=== PATIENT | female | born 1985 | race Caucasian/White ===

== ENCOUNTER 2018-07-18 22:37 | Inpatient (IN) | payer OTHER ==
[~2018-07-18] VITALS: Ht 165.1 cm; Wt 75.7 kg
[2018-07-18] MEDS ORDERED: OXYTOCIN 30 UNITS/LACT RINGERS 500 ML IV ONE (23:29)
[2018-07-18] MEDS ORDERED: RINGERS SOLUTION,LACTATED 1,000 ML IV PRN (23:29)
[2018-07-18] MEDS ORDERED: FentaNYL CITRATE-PF 100 MCG/2 ML VIAL IVP PRN (23:30)
[2018-07-18] MEDS ORDERED: METOCLOPRAMIDE HCL 5 MG/ML 2 ML VIAL IVP PRN (23:30)
[2018-07-18] MEDS ORDERED: LIDOCAINE HCL/PF 1% 30 ML VIAL INJ PRN (23:30)
[2018-07-18] MEDS ORDERED: METHYLERGONOVINE MALEATE 0.2 MG/ML VIAL IM PRN (23:30)
[2018-07-18] MEDS ORDERED: CITRIC ACID/SODIUM CITRATE 30 ML SOLUTION UDCUP PO PRN (23:30)
[2018-07-18 23:34] VITALS: BP 121/80
[2018-07-18] MEDS ORDERED: PREN1TAB80 PO (23:38)
[2018-07-18] MEDS: RINGERS SOLUTION,LACTATED 1,000 ML IV SCH (23:49)
[2018-07-19 00:13] LABS: BASOPHILS % (AUTO) 0.4 % (0.0-2.0); EOSINOPHILS % (AUTO) 0.2 % (1.0-6.0); HEMATOCRIT 35.5 % (36-46); HEMOGLOBIN 11.8 g/dL (12.0-16.0); LYMPHOCYTES # (AUTO) 1.4 K/uL (1.0-4.8); LYMPHOCYTES % (AUTO) 19.3 % (22.0-44.0); MEAN CORPUSCULAR HEMOGLOBIN 28.3 pg (26.0-34.0); MEAN CORPUSCULAR HGB CONC 33.2 G/dL (31.0-37.0); MEAN CORPUSCULAR VOLUME 85 fL (80-100); MONOCYTES # (AUTO) 0.5 K/uL (0.1-1.0); NEUTROPHILS # (AUTO) 5.5 K/uL (1.8-7.7); NEUTROPHILS % (AUTO) 74.1 % (40.0-70.0); PLATELET COUNT (AUTO)-OB 182 K/uL (150-450); RED BLOOD CELL COUNT(AUTO) 4.16 MIL/uL (4.00-5.20); RED CELL DISTRIBUTION WIDTH 14.5 % (11.5-14.5)
[2018-07-19] MEDS ORDERED: OXYGEN THERAPY IH SCH (08:00)
[2018-07-19] MEDS ORDERED: LIDOCAINE HCL/PF 2% 5 ML VIAL ONE (09:37)
[2018-07-19] MEDS ORDERED: ROPIVACAINE HCL/PF 0.2% 100 ML ED ONE (09:38)
[2018-07-19] MEDS ORDERED: ROPIVACAINE HCL/PF 0.2% 100 ML ED PRN (09:54)
[2018-07-19] MEDS ORDERED: NALBUPHINE HCL 10 MG/ML VIAL IVP PRN (10:00)
[2018-07-19] MEDS ORDERED: ONDANSETRON HCL 4 MG/2 ML VIAL IVP PRN (10:00)
[2018-07-19] MEDS ORDERED: DiphenhydrAMINE HCL 50 MG/ML VIAL IVP PRN (10:00)
[2018-07-19] MEDS: RINGERS SOLUTION,LACTATED 1,000 ML IV SCH (11:48)
[2018-07-19] MEDS ORDERED: GLYCERIN/WITCH HAZEL LEAF 40 PADS JAR TP PRN (16:30)
[2018-07-19] MEDS ORDERED: BENZOCAINE 20%/MENTHOL 56 GM SPRAY CANISTER TP PRN (16:30)
[2018-07-19] MEDS ORDERED: IBUPROFEN 800 MG TABLET PO PRN (16:30)
[2018-07-19] MEDS ORDERED: LANOLIN 7 GM OINTMENT TP PRN (16:30)
[2018-07-20] MEDS ORDERED: IBUP-1685 PO (15:53)
[2018-07-20] MEDS ORDERED: DSSL PO (15:53)
== END 2018-07-20 17:50 | disposition home or self-care (01) | DRG 775 ==
LOC: 4S 22:37 → OBSVTOIN 22:37
PROVIDERS: ADMIT Obstetrics & Gynecology; ATTEND Obstetrics & Gynecology
PROC: 10E0XZZ Delivery of Products of Conception, External Approach (ICD-10-PCS; principal; 2018-07-19)
PROC: 0KQM0ZZ Repair Perineum Muscle, Open Approach (ICD-10-PCS; 2018-07-19)
PROC: 3E0R3BZ Introduction of Anesthetic Agent into Spinal Canal, Percutaneous Approach (ICD-10-PCS; 2018-07-19)
PROC: 00HU33Z Insertion of Infusion Device into Spinal Canal, Percutaneous Approach (ICD-10-PCS; 2018-07-19)
DX: O70.1 Second degree perineal laceration during delivery (principal); Z37.0 Single live birth; Z3A.39 39 weeks gestation of pregnancy
CPT/HCPCS: 86850; 86900; 86901; J2590; J2795; J3490; J7120

== ENCOUNTER 2020-09-09 15:57 | Inpatient (IN) | payer OTHER ==
[~2020-09-09] VITALS: Ht 164 cm; Wt 72.6 kg
[~2020-09-09 15:57] MED LIST: DSSL PO; IBUP-2124 PO; PREN1TAB80 PO
[2020-09-11] MEDS ORDERED: METOCLOPRAMIDE HCL 5 MG/ML 2 ML VIAL IVP PRN (09:45)
[2020-09-11] MEDS ORDERED: OXYTOCIN 30 UNITS/LACT RINGERS 500 ML IV ONE ×2 (09:45→23:47)
[2020-09-11] MEDS ORDERED: CITRIC ACID/SODIUM CITRATE 30 ML SOLUTION UDCUP PO PRN (09:45)
[2020-09-11] MEDS ORDERED: METHYLERGONOVINE MALEATE 0.2 MG/ML VIAL IM PRN (09:45)
[2020-09-11] MEDS ORDERED: FentaNYL CITRATE-PF 100 MCG/2 ML VIAL IVP PRN (09:45)
[2020-09-11] MEDS ORDERED: RINGERS SOLUTION,LACTATED 1,000 ML IV PRN (09:45)
[2020-09-11 09:47] VITALS: BP 108/70
[2020-09-11] MEDS ORDERED: FOLI0.4T92 PO (10:16)
[2020-09-11] MEDS ORDERED: PREN-217 PO (10:16)
[2020-09-11] MEDS ORDERED: FERR-89 PO (10:16)
[2020-09-11 10:35] LABS: BASOPHILS % (AUTO) 0.3 % (0.0-2.0); EOSINOPHILS % (AUTO) 0.6 % (1.0-6.0); HEMATOCRIT 37.8 % (36-46); HEMOGLOBIN 12.9 g/dL (12.0-16.0); LYMPHOCYTES # (AUTO) 1.5 K/uL (1.0-4.8); LYMPHOCYTES % (AUTO) 17.3 % (22.0-44.0); MEAN CORPUSCULAR HEMOGLOBIN 30.6 pg (26.0-34.0); MEAN CORPUSCULAR HGB CONC 34.1 G/dL (31.0-37.0); MEAN CORPUSCULAR VOLUME 90 fL (80-100); MONOCYTES # (AUTO) 0.6 K/uL (0.1-1.0); MONOCYTES % (AUTO) 6.8 % (2.0-9.0); NEUTROPHILS # (AUTO) 6.5 K/uL (1.8-7.7); PLATELET COUNT (AUTO)-OB 168 K/uL (150-450); RED BLOOD CELL COUNT(AUTO) 4.22 MIL/uL (4.00-5.20); RED CELL DISTRIBUTION WIDTH 13.4 % (11.5-14.5)
[2020-09-11] MEDS ORDERED: INFLUENZA VIRUS VACCINE QVS 2020-21 (6MO+)/PF 60 MCG/0.5 ML SYRINGE IM ONE (11:00)
[2020-09-11] MEDS ORDERED: MISOPROSTOL 50 MCG TABLET VG SCH (11:00)
[2020-09-11] MEDS: RINGERS SOLUTION,LACTATED 1,000 ML IV SCH ×2 (11:31→18:59)
[2020-09-11] MEDS ORDERED: MISOPROSTOL 50 MCG TABLET PO SCH (12:30)
[2020-09-11 13:14] LABS: COVID AG,FIA SOURCE NASOPHARYNGEAL
[2020-09-11] MEDS ORDERED: OXYGEN THERAPY IH SCH (20:00)
[2020-09-11] MEDS ORDERED: ROPIVACAINE HCL/PF 0.2% 100 ML ED ONE (22:15)
[2020-09-11] MEDS ORDERED: DiphenhydrAMINE HCL 50 MG/ML VIAL IVP PRN (22:45)
[2020-09-11] MEDS ORDERED: ROPIVACAINE HCL/PF 0.2% 100 ML ED PRN (22:45)
[2020-09-11] MEDS ORDERED: ONDANSETRON HCL 4 MG/2 ML VIAL IVP PRN (22:45)
[2020-09-11] MEDS ORDERED: NALBUPHINE HCL 10 MG/ML VIAL IVP PRN (22:45)
[2020-09-12] MEDS ORDERED: ACETAMINOPHEN 325 MG TABLET PO PRN (00:15)
[2020-09-12] MEDS ORDERED: MEASLES/MUMPS/RUBELLA VACCINE, LIVE 0.5 ML/VIAL SQ ONE (00:15)
[2020-09-12] MEDS ORDERED: BENZOCAINE 20%/MENTHOL 56 GM SPRAY CANISTER TP PRN (00:15)
[2020-09-12] MEDS ORDERED: GLYCERIN/WITCH HAZEL LEAF 40 PADS JAR TP PRN (00:15)
[2020-09-12] MEDS ORDERED: LANOLIN 7 GM OINTMENT TP ONE (02:15)
[2020-09-12] MEDS: IBUPROFEN 600 MG TABLET PO SCH ×3 (04:45→18:29)
[2020-09-12] MEDS ORDERED: SENNA/DOCUSATE SODIUM 8.6-50 MG TABLET PO SCH (21:00)
[2020-09-13] MEDS: IBUPROFEN 600 MG TABLET PO SCH ×2 (00:51→06:29)
[2020-09-13 05:50] LABS: BASOPHILS % (AUTO) 0.6 % (0.0-2.0); EOSINOPHILS % (AUTO) 1.4 % (1.0-6.0); HEMATOCRIT 33.5 % (36-46); HEMOGLOBIN 11.2 g/dL (12.0-16.0); LYMPHOCYTES # (AUTO) 2.3 K/uL (1.0-4.8); LYMPHOCYTES % (AUTO) 27.7 % (22.0-44.0); MEAN CORPUSCULAR HEMOGLOBIN 30.7 pg (26.0-34.0); MEAN CORPUSCULAR HGB CONC 33.5 G/dL (31.0-37.0); MEAN CORPUSCULAR VOLUME 92 fL (80-100); MONOCYTES # (AUTO) 0.4 K/uL (0.1-1.0); MONOCYTES % (AUTO) 5.2 % (2.0-9.0); NEUTROPHILS # (AUTO) 5.4 K/uL (1.8-7.7); NEUTROPHILS % (AUTO) 65.1 % (40.0-70.0); PLATELET COUNT (AUTO)-OB 159 K/uL (150-450); RED BLOOD CELL COUNT(AUTO) 3.66 MIL/uL (4.00-5.20); RED CELL DISTRIBUTION WIDTH 13.8 % (11.5-14.5)
[2020-09-13] MEDS ORDERED: MAGNESIUM HYDROXIDE SUSPENSION 30 ML UDCUP PO ONE (12:45)
[2020-09-13] MEDS ORDERED: IBUP-2071 PO (12:50)
== END 2020-09-13 15:10 | disposition home or self-care (01) | DRG 807 ==
LOC: OBSVTOIN 09-11 09:15 → 4S 09-11 09:15
PROVIDERS: ADMIT Obstetrics & Gynecology; ATTEND Obstetrics & Gynecology
PROC: 3E02340 Introduction of Influenza Vaccine into Muscle, Percutaneous Approach (ICD-10-PCS; 2020-09-11)
PROC: 10E0XZZ Delivery of Products of Conception, External Approach (ICD-10-PCS; principal; 2020-09-12)
PROC: 3E0R3BZ Introduction of Anesthetic Agent into Spinal Canal, Percutaneous Approach (ICD-10-PCS; 2020-09-12)
PROC: 00HU33Z Insertion of Infusion Device into Spinal Canal, Percutaneous Approach (ICD-10-PCS; 2020-09-12)
DX: O80 Encounter for full-term uncomplicated delivery (principal); Z37.0 Single live birth; Z3A.40 40 weeks gestation of pregnancy; Z20.828 Contact with and (suspected) exposure to other viral communicable diseases; Z23 Encounter for immunization
CPT/HCPCS: 86850; 86900; 86901; 87426; 90686; J2590; J2795; J7120